=== PATIENT | female | born 1980 | race African-American/Black ===

== ENCOUNTER 2016-10-10 21:11 | Emergency (ER) | payer SELFPAY ==
[2016-10-10 22:08] LABS: APPEARANCE HAZY (CLEAR); BILIRUBIN NEGATIVE (NEGATIVE); COLOR YELLOW (YELLOW); GLUCOSE NEGATIVE (NEGATIVE); KETONE NEGATIVE (NEGATIVE); LEUKOCYTE ESTERASE TRACE (NEGATIVE); NITRITE NEGATIVE (NEGATIVE); PROTEIN TRACE mg/dL (NEGATIVE); UROBILINOGEN NORMAL (NORMAL)
[2016-10-10 22:12] LABS: EPITHELIAL CELLS 0-5 /hpf (0-5); RED CELLS - URINE 0-5 /hpf (0-5)
[2016-10-10 22:14] LABS: BACTERIA MODERATE /hpf (NONE SEEN); MUCUS <1+ /lpf (NONE SEEN)
[2016-10-10 22:15] LABS: HCG URINE NEGATIVE (NEGATIVE)
== END 2016-10-11 00:12 | disposition home or self-care (01) ==
LOC: D.ER 21:11
PROVIDERS: Emergency Medicine
DX: K59.00 Constipation, unspecified (principal)

== ENCOUNTER → 2018-03-07 15:21 | Outpatient (CLI) | payer MEDICAID | END | disposition home or self-care (01) | LOC: D.RAD 15:21 | DX: M54.6 Pain in thoracic spine (principal); M54.5 Low back pain; M79.605 Pain in left leg; M79.10 Myalgia, unspecified site; G62.9 Polyneuropathy, unspecified; G89.4 Chronic pain syndrome ==